=== PATIENT | male | born 1960 | race Caucasian/White ===

== ENCOUNTER 2018-01-05 08:46 | Emergency (ER) | payer MEDICARE, SELFPAY ==
[2018-01-05] VITALS (15 sets, daily range): BP systolic 107–151; BP diastolic 64–88; PULSE 80–105; RESP 14–22; TEMP 36.2–37.3; O2SAT 94–100; BMI 25.1
--- NOTE | 2018-01-05 09:04 | DI.RAD.S_ITS ---
PROCEDURE: XR CHEST 1V INDICATIONS: chest pain TECHNIQUE: One view of the chest was acquired. COMPARISON: None. FINDINGS: Surgical changes and devices: None. Lungs and pleura: No pleural effusions or pneumothorax. Lungs are clear. Mediastinum: Mediastinal contours appear normal. Heart size is normal. AVR. Bones and chest wall: No suspicious bony lesions. Overlying soft tissues appear unremarkable. IMPRESSION: No radiographic evidence of acute cardiopulmonary pathology. Dictated by: Elder Miles M.D. on 01/05/2018 at 9:37 Approved by: Elder Miles M.D. on 01/05/2018 at 9:38
[2018-01-05] MEDS: ASPIRIN 81 MG TAB 324 MG PO (09:23)
[2018-01-05] MEDS: SODIUM CHLORIDE 0.9% 1,000 ML 150 ML IV (09:24)
[2018-01-05] MEDS: NITROGLYCERIN 0.4 MG SL TAB SL ×2 (09:28→09:29)
[2018-01-05 09:29] LABS: Add Manual Diff / Slide Review NO; Basophils Percent Auto 0.7 % (0-2); Eosinophils Percent Auto 0.8 % (2-4); Hematocrit 41.6 % (41-53); Hemoglobin 14.3 g/dL (13.5-17.5); Lymphocytes Percent Auto 9.8 % (25-40); Mean Corpuscular HGB Conc 34.3 % (30-36); Mean Corpuscular Hemoglobin 33.2 PG (26-34); Mean Corpuscular Volume 96.7 fL (80-100); Neutrophils Absolute Auto 16300 /uL (3000-5900); Neutrophils Percent Auto 79.7 % (50-75); Platelet Count 191 X10^3/uL (150-400); Red Cell Distribution Width 13.4 % (11.6-14.8); White Blood Cell Count 20.5 X10^3/uL (4.5-11.0)
[2018-01-05 09:31] LABS: INR 3.5 (0.9-1.3); Prothrombin Time 38.8 SECONDS (10.1-12.7)
[2018-01-05 09:36] LABS: Alanine Aminotransferase 35 IU/L (21-72); Albumin 4.3 g/dL (3.5-5.0); Albumin Globulin Ratio 1.6 (1.0-2.8); Alkaline Phosphatase 69 U/L (38-126); Aspartate Aminotransferase 32 IU/L (17-59); BUN Creatinine Ratio 14.3 (6-22); Blood Urea Nitrogen 10 mg/dL (9-20); Calcium 8.8 mg/dL (8.4-10.2); Carbon Dioxide 29 mmol/L (22-32); Chloride 102 mmol/L (98-107); Creatine Kinase 92 U/L (55-170); Estimated Glomerular Filt Rate > 60.0 mL/min (>60); Globulin 2.7 g/dL (1.7-4.1); Glucose 121 mg/dL (70-100); HEMOLYSIS 22 (0-50); Lipase 31 U/L (23-300); Sodium 138 mmol/L (137-145)
[2018-01-05 09:52] LABS: Troponin I < 0.012 ng/mL (0.01-0.034)
--- NOTE | 2018-01-05 09:57 | ED.CHESTPAIN ---
HPI - Chest Pain General Chief Complaint: Chest Pain Stated Complaint: CHEST PAIN, SOB Time Seen by Provider: 01/05/18 09:03 Source: patient Mode of arrival: ambulatory Limitations: no limitations History of Present Illness HPI narrative: Patient is a 57-year-old male presents with chest pain. It started last evening in his back and has moved around to his front it is constant in nature. Nonradiating worse every time he breathes. He does have a history of aortic valve and is on Coumadin. No other cardiac or known coronary artery disease. He denies any shortness of breath nausea or diaphoresis. He admits to smoking 8 cigarettes daily. Related Data Home Medications Medication Instructions Recorded Confirmed atorvastatin 80 mg PO DAILY 01/05/18 01/05/18 cholecalciferol (vitamin D3) 2,000 unit PO DAILY 01/05/18 01/05/18 citalopram 40 mg PO DAILY 01/05/18 01/05/18 dextroamphetamine-amphetamine 25 mg PO QAM 01/05/18 01/05/18 levothyroxine 137 mcg PO DAILY 01/05/18 01/05/18 metoprolol tartrate 12.5 mg PO DAILY 01/05/18 01/05/18 metronidazole [Metrogel] 1 applic TOPICAL DAILY 01/05/18 01/05/18 [id number] 1 tab PO DAILY 01/05/18 01/05/18 [Theragran-M Premier 50 Plus] ropinirole 2 mg PO BEDTIME 01/05/18 01/05/18 trazodone 150 mg PO BEDTIME 01/05/18 01/05/18 warfarin See Label Instructions .ROUTE 01/05/18 01/05/18 .COMPLEX MDD q day except Wednesday warfarin See Label Instructions .ROUTE 01/05/18 01/05/18 .COMPLEX MDD takes q wednesday Previous Rx's Medication Instructions Recorded albuterol sulfate 1 puff INHALATION Q4-6H PRN #8.5 01/05/18 gram doxycycline hyclate 100 mg PO BID #14 tab 01/05/18 prednisone 50 mg PO DAILY #5 tab 01/05/18 Allergies Allergy/AdvReac Type Severity Reaction Status Date / Time No Known Drug Allergies Allergy Verified 01/05/18 09:27 Review of Systems Review of Systems All systems reviewed & are unremarkable except as noted in HPI and below Constitutional Denies chills, Denies fever(s), Denies lethargy and Denies weakness Cardiovascular Reports as per HPI Respiratory Denies chest congestion, Reports pain on inspiration, Denies stridor and Denies wheezing Gastrointestinal Gastrointestinal: Denies abdominal pain, Denies change in bowel habits, Denies diarrhea, Denies nausea and Denies vomiting Musculoskeletal Denies back pain, Denies muscle weakness, Denies numbness and Denies tingling Integumentary/Breasts Denies pruritus, Denies erythema, Denies rash and Denies wounds Neurologic Denies numbness, Denies tingling and Denies weakness Allergic/Immunologic Denies wheezing PFSH Medical History Hypothyroidism (Acute) Surgical History Aortic valve replaced (Acute) Social History Smoking Status: Current every day smoker Exam Initial Vital Signs Initial Vital Signs: Vital Signs Temperature 99.2 F 01/05/18 08:47 Pulse Rate 105 H 01/05/18 08:47 Respiratory Rate 22 01/05/18 08:47 Blood Pressure 151/88 H 01/05/18 08:47 Pulse Oximetry 95 01/05/18 08:47 GENERAL: Thin male appears in pain HEENT: Head atraumatic,EOMI, pupils reactive, face symmetric, neck is supple no JVD CARDIOVASCULAR: Mechanical valve click, regular rate no murmurs RESPIRATORY: Breath sounds equal bilaterally, no wheezes rales or rhonchi. ABDOMEN: Soft, nontender. Normoactive bowel sounds all 4 quadrants. No guarding or rebound.s EXTREMITIES: Normal range of motion, no clubbing or edema. Neurovascularly intact NEUROLOGICAL: Alert and oriented x4.Normal gait and speech. Cranial nerves II through XII grossly intact. SKIN: Warm, dry, no laceration, no petechiae, no rashes or lesions. Scores HEART Score Heart Score history: Moderately Suspicious Heart Score EKG: Normal Heart Score Age: 45-64 years old Heart Score risk factors: 1-2 risk factors Heart Score troponin: < or = to normal limit Heart Score Total: 3 Course Orders Ordered: ED Orders 01/05/18 09:00 Urinalysis and Microscopic Stat 01/05/18 09:04 XR chest 1V Stat EKG-12 Lead Stat 01/05/18 09:05 Complete Blood Count AUTO DIFF Stat Comprehensive Metabolic Panel Stat Lipase Stat Prothrombin Time INR Stat Troponin & CK Cardiac Panel Stat 01/05/18 10:00 CT angio chest abdomen pelvis Stat Discontinued Medications Albuterol (Ventolin) 2.5 mg INH NOW PRN PRN Reason: Shortness Of Breath Last Admin: 01/05/18 11:14 Dose: 2.5 mg Albuterol/Ipratropium (Duoneb) 3 ml INH NOW ONE Stop: 01/05/18 11:06 Last Admin: 01/05/18 11:10 Dose: 3 ml Aspirin (Aspirin Chew) 324 mg PO NOW ONE Stop: 01/05/18 09:05 Last Admin: 01/05/18 09:23 Dose: 324 mg Sodium Chloride (Normal Saline 0.9%) 1,000 mls @ 150 mls/hr IV CONT SALVADOR Last Infusion: 01/05/18 10:46 Dose: 0 mls/hr Admin: 01/05/18 09:24 Dose: 150 mls/hr Morphine Sulfate (Morphine) 4 mg IV NOW ONE Stop: 01/05/18 09:59 Last Admin: 01/05/18 10:09 Dose: 4 mg Nitroglycerin (Nitrostat) 0.4 mg SL [id number] PRN PRN Reason: Chest Pain Last Admin: 01/05/18 09:29 Dose: 0.4 mg Admin: 01/05/18 09:28 Dose: 0.4 mg Vital Signs - 8 hr 01/05/18 08:47 01/05/18 09:28 01/05/18 09:29 Temperature 99.2 F Pulse Rate 105 H 97 H 97 H Respiratory Rate 22 Blood Pressure 151/88 H 148/75 H 124/68 H Blood Pressure [Left Arm] Blood Pressure [Right Arm] Pulse Oximetry 95 01/05/18 09:30 01/05/18 09:37 01/05/18 09:45 Temperature Pulse Rate 99 H 95 H 90 Respiratory Rate 16 15 Blood Pressure 124/68 H Blood Pressure [Left Arm] 118/73 118/73 Blood Pressure [Right Arm] Pulse Oximetry 94 94 01/05/18 10:00 01/05/18 10:21 01/05/18 10:30 Temperature 98.2 F Pulse Rate 89 82 83 Respiratory Rate 19 18 Blood Pressure 114/64 Blood Pressure [Left Arm] 117/69 117/69 Blood Pressure [Right Arm] Pulse Oximetry 96 95 01/05/18 11:00 01/05/18 11:10 01/05/18 11:14 Temperature Pulse Rate 84 80 80 Respiratory Rate 21 14 14 Blood Pressure Blood Pressure [Left Arm] 121/75 H Blood Pressure [Right Arm] Pulse Oximetry 94 100 99 01/05/18 11:37 01/05/18 12:15 01/05/18 12:27 Temperature 97.1 F L Pulse Rate 90 87 92 H Respiratory Rate 16 20 20 Blood Pressure 116/64 Blood Pressure [Left Arm] 117/65 Blood Pressure [Right Arm] 107/66 Pulse Oximetry 95 95 MDM - Chest Pain Lab Data Attestation: I reviewed the patient's lab results. Result diagrams: 01/05/18 09:05 01/05/18 09:05 Lab Results 01/05/18 01/05/18 01/05/18 Range/Units 09:00 09:05 09:05 WBC 20.5 H (4.5-11.0) X10^3/uL RBC 4.30 L (4.5-5.9) X10^6/uL Hgb 14.3 (13.5-17.5) g/dL Hct 41.6 (41-53) % MCV 96.7 (80-100) fL MCH 33.2 (26-34) PG MCHC 34.3 (30-36) % RDW 13.4 (11.6-14.8) % Plt Count 191 (150-400) X10^3/uL Neut % (Auto) 79.7 H (50-75) % Lymph % (Auto) 9.8 L (25-40) % [place] % (Auto) 9.0 (3-14) % Eos % (Auto) 0.8 L (2-4) % Baso % (Auto) 0.7 (0-2) % Neut # (Auto) 71039 H (5061-5868) /uL PT 38.8 H (10.1-12.7) SECONDS INR 3.5 H (0.9-1.3) Sodium (137-145) mmol/L Potassium (3.4-5.1) mmol/L Chloride (98-107) mmol/L Carbon Dioxide (22-32) mmol/L BUN (9-20) mg/dL Creatinine (0.66-1.25) mg/dL Estimated GFR (>60) mL/min BUN/Creatinine Ratio (6-22) Glucose (70-100) mg/dL Calcium (8.4-10.2) mg/dL Total Bilirubin (0.2-1.3) mg/dL AST (17-59) IU/L ALT (21-72) IU/L Alkaline Phosphatase (38-126) U/L Total Creatine Kinase (55-170) U/L Troponin I (0.01-0.034) ng/mL Total Protein (6.3-8.2) g/dL Albumin (3.5-5.0) g/dL Globulin (1.7-4.1) g/dL Albumin/Globulin Ratio (1.0-2.8) Lipase (23-300) U/L Urine Color Yellow Urine Appearance Clear Urine pH 7.0 (4.5-8.0) Ur Specific [place] <=1.005 (1.000-1.035) Urine Protein Negative (Negative) Urine Glucose (UA) Negative (Normal) g/dL Urine Ketones Negative (NEGATIVE) Urine Occult Blood 1+ H (Negative) Urine Nitrate Negative (Negative) Urine Bilirubin Negative (NEGATIVE) Urine Urobilinogen 0.2 (0.2) E.U./dL Ur Leukocyte Esterase Negative (NEGATIVE) Urine RBC 5-10/hpf H (0-5/HPF) Urine WBC None seen (0-5/HPF) Urine Bacteria None seen (None) Ur Culture Indicated? Cult not indicated Micro UA Comment Not Reportable 01/05/18 Range/Units 09:05 WBC (4.5-11.0) X10^3/uL RBC (4.5-5.9) X10^6/uL Hgb (13.5-17.5) g/dL Hct (41-53) % MCV (80-100) fL MCH (26-34) PG MCHC (30-36) % RDW (11.6-14.8) % Plt Count (150-400) X10^3/uL Neut % (Auto) (50-75) % Lymph % (Auto) (25-40) % [place] % (Auto) (3-14) % Eos % (Auto) (2-4) % Baso % (Auto) (0-2) % Neut # (Auto) (2515-8178) /uL PT (10.1-12.7) SECONDS INR (0.9-1.3) Sodium 138 (137-145) mmol/L Potassium 4.0 (3.4-5.1) mmol/L Chloride 102 (98-107) mmol/L Carbon Dioxide 29 (22-32) mmol/L BUN 10 (9-20) mg/dL Creatinine 0.70 (0.66-1.25) mg/dL Estimated GFR > 60.0 (>60) mL/min BUN/Creatinine Ratio 14.3 (6-22) Glucose 121 H (70-100) mg/dL Calcium 8.8 (8.4-10.2) mg/dL Total Bilirubin 1.0 (0.2-1.3) mg/dL AST 32 (17-59) IU/L ALT 35 (21-72) IU/L Alkaline Phosphatase 69 (38-126) U/L Total Creatine Kinase 92 (55-170) U/L Troponin I < 0.012 (0.01-0.034) ng/mL Total Protein 7.0 (6.3-8.2) g/dL Albumin 4.3 (3.5-5.0) g/dL Globulin 2.7 (1.7-4.1) g/dL Albumin/Globulin Ratio 1.6 (1.0-2.8) Lipase 31 (23-300) U/L Urine Color Urine Appearance Urine pH (4.5-8.0) Ur Specific [place] (1.000-1.035) Urine Protein (Negative) Urine Glucose (UA) (Normal) g/dL Urine Ketones (NEGATIVE) Urine Occult Blood (Negative) Urine Nitrate (Negative) Urine Bilirubin (NEGATIVE) Urine Urobilinogen (0.2) E.U./dL Ur Leukocyte Esterase (NEGATIVE) Urine RBC (0-5/HPF) Urine WBC (0-5/HPF) Urine Bacteria (None) Ur Culture Indicated? Micro UA Comment Imaging Data Chest x-ray: Radiologist's impression: PROCEDURE: XR CHEST 1V INDICATIONS: chest pain TECHNIQUE: One view of the chest was acquired. COMPARISON: None. FINDINGS: Surgical changes and devices: None. Lungs and pleura: No pleural effusions or pneumothorax. Lungs are clear. Mediastinum: Mediastinal contours appear normal. Heart size is normal. AVR. Bones and chest wall: No suspicious bony lesions. Overlying soft tissues appear unremarkable. IMPRESSION: No radiographic evidence of acute cardiopulmonary pathology. Dictated by: Elder Miles M.D. on 01/05/2018 at 9:37 CTA Chest/AB/PELVIS: Radiologist's impression: [address] [address] [address] Scan Report Signed Patient: KEVIN ZAMORA MR#: [id number] : 1960 Acct:[id number] Age/Sex: 57 / M Date of Service: 01/05/18 Loc: ED Accession Number: [id number] Procedure: CT angio chest abdomen pelvis Ordering Provider: Luz Bradley D.O. PROCEDURE: CT ANGIO CHEST ABDOMEN PELVIS INDICATIONS: chest pain, dissection TECHNIQUE: Precontrast 5 mm thick sections acquired from the lung apices to the iliac crests. After the administration of intravenous contrast, 2.5 mm thick sections again acquired from the lung apices to the iliac crests. Maximum intensity projection (MIP) oblique sagittal and coronal reformats were then acquired. For radiation dose reduction, the following was used: automated exposure control. COMPARISON: None. FINDINGS: Image quality: Excellent. AORTA: No evidence of aortic dissection or aneurysm. No periaortic hemorrhage is seen. Left vertebral artery originates from the arch, anatomic variant. CHEST: Lungs and pleura: No acute consolidation however there are scattered 5 mm or less bilateral pulmonary nodules for example image 61 series 7 in the lingula, and image 63 series 7 in the right lower lobe. Bibasilar dependent scarring or atelectasis, although early bronchopneumonia cannot be excluded in the left lower lobe on image 79 series 7. Upper lobe predominant mild centrilobular emphysema. No pleural effusions or pneumothorax. Central and peripheral airways are patent and normal in caliber. Mediastinum: Heart size is normal. Coronary artery calcifications are present. Mild pericardial effusion. Shotty subcentimeter mediastinal and hilar lymph nodes without definite pathologic adenopathy by size criteria. Central pulmonary arteries are normal in size. No intraluminal filling defect to suggest pulmonary emboli Esophagus is normal in caliber. No hiatal hernias. Bones and chest wall: No axillary adenopathy by size criteria. No suspicious bony lesions. No vertebral body compression fractures. ABDOMEN: Vasculature: Celiac trunk and mesenteric arteries are patent. Renal arteries are also patent. Solid organs: Liver is normal in size and enhancement. Gallbladder negative. Biliary system is non dilated. Pancreas enhances normally. Spleen is normal in size and enhancement. No adrenal nodules. Both kidneys are normal in size and enhancement, without hydronephrosis. Peritoneum and bowel: No free fluid or air. Bowel loops are normal in caliber and wall thickness. Normal appendix. No evidence of acute diverticulitis. Rectum is grossly unremarkable. Nodes and vessels: No retroperitoneal or mesenteric adenopathy by size criteria. Inferior vena cava is normal in morphology. Miscellaneous: Tiny fat containing umbilical hernia. PELVIS: Genitourinary: Bladder wall thickness is normal. Miscellaneous: Small bilateral fat containing inguinal hernias. No pelvic adenopathy. Bones: No suspicious bony lesions. There is subchondral serpiginous sclerosis involving the right femoral head in keeping with avascular necrosis. No definite articular surface collapse is seen. No vertebral body compression fractures. IMPRESSION: No aortic aneurysm or evidence of dissection. Bilateral lower lobe presumed aspiration/atelectasis although cannot entirely exclude early bronchopneumonia in the left lower lobe. Please correlate clinically. Nonspecific 5 mm or less scattered pulmonary nodules which are technically indeterminate in the absence of prior comparison studies. Early metastatic or malignant possibilities cannot be excluded therefore recommend followup noncontrast chest CT in 6 months. Mild upper lobe predominant centrilobular emphysema. Coronary artery disease Elsewhere, no acute abnormality is seen. Incidentally noted avascular necrosis involving right femoral head without definite articular surface collapse at this time. Continued surveillance with serial right hip radiographs could be performed as clinically warranted Dictated by: Waqar Mansfield M.D. on 01/05/2018 at 10:34 ECG Data Attestation: I personally reviewed and interpreted this ECG as follows: Prior ECG tracings: not available for review Interpretation: EKG 1.: Normal sinus rhythm rate 91 ST changes noted in lead 3 and lead to no elevation after J-point, no ST depression no T-wave inversion EKG 2. Sinus rhythm rate [address] segments MDM Narrative Medical decision making narrative: The patient had no relief with chest pain after nitro. He is given morphine which he says helped some. Primary he was given bronchodilators which he says has helped the most. His troponin is negative, after more than 6 hr of chest and back discomfort. Symptoms relieved with albuterol. Symptoms are more consistent with a respiratory problem. Pain with inspiration in inability to take a deep breath. CTA is negative for any dissection or aneurysm. He does have leukocytosis with mild left shift. He has not had fever. He has had increasing cough. We will treat him with doxycycline and prednisone. 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 I discussed all findings with the patient, Education has been performed regarding treatment plan, diagnosis, warning signs and symptoms and all concerns have been addressed. Verbally agree with and understood all of the above. Discharge Plan Departure Patient Disposition: Home Clinical Impression: Acute exacerbation of chronic obstructive pulmonary disease (COPD) Discharge Date/Time: 01/05/18 12:27 Interventions: ED Discharge Assessment Last Done: 01/05/18 12:27 Instructions: Chronic Obstructive Pulmonary Disease Activity Restrictions/Additional Instructions: *You have been diagnosed with COPD exacerbation *What to do: Made to discuss with your doctor about other inhalers, stop smoking -antibiotics can at change you're INR, INR today is 3.5 please have it rechecked next week with your primary *Continue to take medications as directed Prednisone 50 mg once a day for 5 days, start today Doxycycline 1 tablet twice a day for 7 days start today Albuterol 1-2 puffs every 4 hr if needed for coughing chest tightness, difficulty breathing *Follow up with your primary care provider in 2-3 days *Return to ER if you should have a difficulty breathing, chest pain or any new, worsening or concerning symptoms Prescriptions: New prednisone 50 mg tablet 50 mg PO DAILY Qty: 5 RF: 0 doxycycline hyclate 100 mg tablet 100 mg PO BID Qty: 14 RF: 0 albuterol sulfate 90 mcg/actuation HFA aerosol inhaler 1 puff INHALATION Q4-6H PRN (Reason: shortness of breath or wheezing) Qty: 8.5 RF: 0 No Action levothyroxine 137 mcg Tablet 137 mcg PO DAILY RF: 0 citalopram 40 mg Tablet 40 mg PO DAILY RF: 0 warfarin 7.5 mg Tablet See Label Instructions .ROUTE .COMPLEX MDD takes q wednesday RF: 0 ropinirole 2 mg Tablet 2 mg PO BEDTIME RF: 0 trazodone 150 mg Tablet 150 mg PO BEDTIME RF: 0 warfarin 5 mg Tablet See Label Instructions .ROUTE .COMPLEX MDD q day except Wednesday RF: 0 dextroamphetamine-amphetamine 25 mg Capsule,Extended Release 24hr 25 mg PO QAM RF: 0 metoprolol tartrate 25 mg Tablet 12.5 mg PO DAILY RF: 0 metronidazole [Metrogel] 1 % Gel 1 applic TOPICAL DAILY RF: 0 cholecalciferol (vitamin D3) 2,000 unit Capsule 2,000 unit PO DAILY RF: 0 [id number] [Theragran-M Premier 50 Plus] 400-250-375 mcg Tablet 1 tab PO DAILY RF: 0 atorvastatin 40 mg capsule 80 mg PO DAILY RF: 0
--- NOTE | 2018-01-05 10:00 | DI.CT.S_ITS ---
PROCEDURE: CT ANGIO CHEST ABDOMEN PELVIS INDICATIONS: chest pain, dissection TECHNIQUE: Precontrast 5 mm thick sections acquired from the lung apices to the iliac crests. After the administration of intravenous contrast, 2.5 mm thick sections again acquired from the lung apices to the iliac crests. Maximum intensity projection (MIP) oblique sagittal and coronal reformats were then acquired. For radiation dose reduction, the following was used: automated exposure control. COMPARISON: None. FINDINGS: Image quality: Excellent. AORTA: No evidence of aortic dissection or aneurysm. No periaortic hemorrhage is seen. Left vertebral artery originates from the arch, anatomic variant. CHEST: Lungs and pleura: No acute consolidation however there are scattered 5 mm or less bilateral pulmonary nodules for example image 61 series 7 in the lingula, and image 63 series 7 in the right lower lobe. Bibasilar dependent scarring or atelectasis, although early bronchopneumonia cannot be excluded in the left lower lobe on image 79 series 7. Upper lobe predominant mild centrilobular emphysema. No pleural effusions or pneumothorax. Central and peripheral airways are patent and normal in caliber. Mediastinum: Heart size is normal. Coronary artery calcifications are present. Mild pericardial effusion. Shotty subcentimeter mediastinal and hilar lymph nodes without definite pathologic adenopathy by size criteria. Central pulmonary arteries are normal in size. No intraluminal filling defect to suggest pulmonary emboli Esophagus is normal in caliber. No hiatal hernias. Bones and chest wall: No axillary adenopathy by size criteria. No suspicious bony lesions. No vertebral body compression fractures. ABDOMEN: Vasculature: Celiac trunk and mesenteric arteries are patent. Renal arteries are also patent. Solid organs: Liver is normal in size and enhancement. Gallbladder negative. Biliary system is non dilated. Pancreas enhances normally. Spleen is normal in size and enhancement. No adrenal nodules. Both kidneys are normal in size and enhancement, without hydronephrosis. Peritoneum and bowel: No free fluid or air. Bowel loops are normal in caliber and wall thickness. Normal appendix. No evidence of acute diverticulitis. Rectum is grossly unremarkable. Nodes and vessels: No retroperitoneal or mesenteric adenopathy by size criteria. Inferior vena cava is normal in morphology. Miscellaneous: Tiny fat containing umbilical hernia. PELVIS: Genitourinary: Bladder wall thickness is normal. Miscellaneous: Small bilateral fat containing inguinal hernias. No pelvic adenopathy. Bones: No suspicious bony lesions. There is subchondral serpiginous sclerosis involving the right femoral head in keeping with avascular necrosis. No definite articular surface collapse is seen. No vertebral body compression fractures. IMPRESSION: No aortic aneurysm or evidence of dissection. Bilateral lower lobe presumed aspiration/atelectasis although cannot entirely exclude early bronchopneumonia in the left lower lobe. Please correlate clinically. Nonspecific 5 mm or less scattered pulmonary nodules which are technically indeterminate in the absence of prior comparison studies. Early metastatic or malignant possibilities cannot be excluded therefore recommend followup noncontrast chest CT in 6 months. Mild upper lobe predominant centrilobular emphysema. Coronary artery disease Elsewhere, no acute abnormality is seen. Incidentally noted avascular necrosis involving right femoral head without definite articular surface collapse at this time. Continued surveillance with serial right hip radiographs could be performed as clinically warranted Dictated by: Waqar Mansfield M.D. on 01/05/2018 at 10:34 Approved by: Waqar Mansfield M.D. on 01/05/2018 at 10:48
[2018-01-05] MEDS: MORPHINE 4 MG/ML INJ IV (10:09)
[2018-01-05 10:22] LABS: Bacteria Urine None Seen; WBC Urine None Seen (0-5/HPF)
[2018-01-05 10:24] LABS: Appearance Urine UA CLEAR; Bilirubin Urine UA NEGATIVE (NEGATIVE); Color Urine UA YELLOW; Glucose Urine UA NEGATIVE (Normal); Ketones Urine UA NEGATIVE (NEGATIVE); Leukocyte Esterase Urine UA NEGATIVE (NEGATIVE); Nitrite Urine UA Negative (Negative); Occult Blood Urine UA 1+ (Negative); Protein Urine UA NEGATIVE (Negative); Specific Gravity Urine UA <=1.005 (1.000-1.035); Urobilinogen Urine UA 0.2 E.U./dL (0.2)
[2018-01-05 10:32] LABS: Culture Indicated Urine Cult Not Indicated; RBC Urine 5-10/HPF (0-5/HPF)
[2018-01-05] MEDS: ALBUTEROL/IPRATROPIUM 3 ML AMPUL INH (11:10)
[2018-01-05] MEDS: ALBUTEROL 2.5 MG/3 ML NEB (ADULT) INH (11:14)
== END 2018-01-05 12:27 | disposition home or self-care (01) ==
PROVIDERS: Emergency Provider Emergency Medicine
DX: J44.1 Chronic obstructive pulmonary disease with (acute) exacerbation (principal)
CPT/HCPCS: 71045; 71275; 74174; 80053; 81001; 82550; 82553; 83690; 84484; 85025; 85610; 93005; 93010; 94640; 96361; 96374; 99285; J2270; J7613; Q9967